=== PATIENT | male | born 1990 | race Caucasian/White ===

== ENCOUNTER 2018-10-05 12:14 | Emergency (ER) | payer SELFPAY ==
[~2018-10-05] VITALS: Ht 177.8 cm; Wt 75.1 kg
[2018-10-05 12:26] VITALS: BP 137/82
== END 2018-10-05 13:21 | disposition home or self-care (01) ==
LOC: ED 13:08
DX: S20.211A Contusion of right front wall of thorax, initial encounter (principal); W51.XXXA Accidental striking against or bumped into by another person, initial encounter; Y93.89 Activity, other specified; Y92.009 Unspecified place in unspecified non-institutional (private) residence as the place of occurrence of the external cause; Y99.8 Other external cause status
CPT/HCPCS: 99283